=== PATIENT | female | born 1955 | race Caucasian/White ===

== ENCOUNTER 2025-03-27 12:27 | Emergency (ER) | payer MEDICARE, SELFPAY ==
[2025-03-27 13:06] VITALS: BP 116/77; PULSE 87; RESP 18; TEMP 36.9; O2SAT 95; BMI 26.4
[2025-03-27] MEDS: ONDANSETRON ODT 4 MG TABRAP PO (13:26)
[2025-03-27] MEDS: MORPHINE SULF INJ 10 MG/ML VIAL 5 MG IM (13:26)
[2025-03-27] MEDS: DEXAMETHASONE SOD PHOS INJ 10 MG/ML VIAL PO (13:27)
--- NOTE | 2025-03-27 13:57 | PD.EDNECK ---
ED Neck Injury Pain RME/HPI General Chief Complaint: Neck Pain/Injury Stated Complaint: Neck pain radiating down to shoulders. Time Seen by Provider: 03/27/25 13:12 Arrival date/time: 03/27/25 12:27 69-year-old female presents to the emergency department today for complaints of neck pain patient reports pain worse with movement. Patient reports her pain is chronic and has been dealing with this for some time patient reports she has had imaging and lab work in the past. Limitations: no limitations Related Data Home Medications ?Medication ?Instructions ?Recorded ?Confirmed metoprolol tartrate 25 mg tablet 25 mg PO DAILY High Blood Pressure 10/20/19 11/22/23 montelukast 10 mg tablet 10 mg PO HS Allergies 10/20/19 11/22/23 quetiapine 300 mg tablet,extended 400 mg PO HS Sleep Disorder 10/20/19 11/22/23 release 24 hr albuterol sulfate 90 mcg/actuation 2 puff inhalation Q6H PRN COPD 11/05/19 11/23/23 aerosol inhaler (Ventolin HFA) gabapentin 400 mg capsule 600 mg PO TID 03/25/20 11/22/23 tiotropium bromide 18 mcg capsule 1 cap inhalation QDAY 03/25/20 11/22/23 with inhalation device (Spiriva with HandiHaler) hydroxyzine HCl 25 mg tablet 25 mg PO HS Sleep Disorder 10/31/21 11/22/23 ropinirole 4 mg tablet 4 mg PO HS 08/29/22 11/22/23 melatonin 10 mg tablet 10 mg PO HS PRN Sleep 09/01/22 11/22/23 paroxetine HCl 20 mg tablet 20 mg PO DAILY 11/22/23 11/23/23 tiotropium bromide 18 mcg capsule inhalation 11/22/23 with inhalation device (Spiriva with HandiHaler) Previous Rx's ?Medication ?Instructions ?Recorded hydrocodone 5 mg-acetaminophen 325 1 tab PO BID PRN pain #10 tabs 11/14/23 mg tablet famotidine 40 mg tablet 40 mg PO QDAY #30 tabs 11/25/23 hydrocodone 5 mg-acetaminophen 300 1 tab PO BID PRN moderate pain 11/25/23 mg tablet (scale score 5-6) #14 tabs pantoprazole 40 mg tablet,delayed 40 mg PO QDAY #30 tabs 11/25/23 release doxycycline monohydrate 100 mg 100 mg PO BID #10 caps 08/18/24 capsule cyclobenzaprine 10 mg tablet 10 mg PO TID PRN muscle spasm 10 03/27/25 days #30 tab-caps Allergies Allergy/AdvReac Type Severity Reaction Status Date / Time adhesive tape Allergy Severe Hives Verified 03/27/25 12:30 Sulfa (Sulfonamide Allergy Severe RASH Verified 03/27/25 12:30 Antibiotics) Review of Systems Review of Systems Systems Reviewed: All systems reviewed, normal except as documented Constitutional Constitutional: Reports system reviewed and no additional complaints, except as documented, Denies fever(s) and Denies headache(s) Eyes Eyes: Reports system reviewed and no additional complaints, except as documented and Denies blurry vision ENT Ears, Nose, Mouth, and Throat: Reports system reviewed and no additional complaints, except as documented, Denies headache(s), Denies nasal congestion, Denies nasal discharge and Reports neck pain Cardiovascular Cardiovascular: Reports system reviewed and no additional complaints, except as documented, Denies chest pain and Denies dyspnea Respiratory Respiratory: Reports system reviewed and no additional complaints, except as documented, Denies chest congestion, Denies cough and Denies dyspnea Gastrointestinal Gastrointestinal: Reports system reviewed and no additional complaints, except as documented and Denies abdominal pain Musculoskeletal Musculoskeletal: Reports system reviewed and no additional complaints, except as documented, Denies deformity and Reports neck pain Integumentary/Breasts Skin/Breast: Reports system reviewed and no additional complaints, except as documented and Denies rash Neurologic Neurologic: Reports system reviewed and no additional complaints, except as documented, Reports as per HPI and Denies headache(s) Past Medical History Past Medical History NEUROLOGIC: Positive Neurological Disorders and Migraine; Negative Cerebrovascular Accident, Transient Ischemic Attacks (TIA), Dementia, Alzheimer's Disease, Parkinson's Disease, Brain Tumor, Meningitis, Seizures, Epilepsy, Cerebral Palsy, Amyotrophic Lateral Sclerosis (ALS/Deanna Gehrig's), Guillain-[place] Syndrome, Spina Bifida, Paralysis, Peripheral Neuropathy, David's Palsy, Subdural Hematoma, Head Trauma, Spinal Cord Injury or Traumatic Brain Injury CARDIAC: Positive Cardiac Arrhythmia and Hypertension; Negative Cardiac Disorders, Myocardial Infarction, Atrial Fibrillation, Angina, Heart Murmur, Coronary Artery Disease, Atherosclerotic Heart Disease, Peripheral Vascular Disease, Hypercholesterolemia, Aneurysm, Congestive Heart Failure, Congenital Heart Disease, Valvular Heart Disease, Rheumatic Fever, Cardiomyopathy, Edema, Pericarditis, Cellulitis, Deep Vein Thrombosis, Hypotension or Varicose Veins RESPIRATORY: Positive Asthma and Emphysema; Negative Chronic Obstructive Pulmonary Disease (COPD), Bronchitis, Pneumonia, Pulmonary Fibrosis, Cystic Fibrosis, Tuberculosis, Pulmonary Embolism, Pulmonary Edema or Sleep Apnea GASTROINTESTINAL: Positive Gastrointestinal Disorders, Hepatitis, Gall Bladder Disease, Ulcer, Hiatal Hernia and Obesity; Negative Cirrhosis, Pancreatitis, Celiac Disease, Gastrointestinal Bleed, Esophageal Varices, Hassan's Esophagus, Colitis, Ulcerative Colitis, Diverticulitis, Diverticulosis, Colorectal Cancer, Irritable Bowel, Crohn's Disease, Obstructive Bowel, Hemorrhoids or Gastroesophageal Reflux Disease GENITOURINARY: Negative Genitourinary Disorders, Renal Disease, Kidney Stones, Polycystic Kidney Disease, Neurogenic Bladder, Inguinal Hernia, Dialysis or Prostate Cancer REPRODUCTIVE: Positive Previous Pregnancies; Negative Breast Cancer, Endometriosis, Genital Herpes, Gonorrhea, Pelvic Inflammatory Disease, Syphilis or Uterine Prolapse MUSCULOSKELETAL: Positive Musculoskeletal Disorders, Arthritis, Carpal Tunnel Syndrome, Fibromyalgia and Fractures; Negative Muscular Dystrophy, Myasthenia Gravis, Marfan's Syndrome, Bone Cancer, Rheumatoid Arthritis, Osteoporosis, Degenerative Joint Disease, Osteomyelitis or Poliovirus ENT: Positive Cataracts; Negative Glaucoma, Blind, Retinal Detachment, Macular Degeneration, Ear Infection, Deafness, Head Trauma or Eye Prosthesis ENDOCRINE: Negative Endocrine Disorders, Diabetes Mellitus Type 1, Diabetes Mellitus Type 2, Hypoglycemia, Hyperthyroidism, Hypothyroidism, Parathyroid Disease, Pituitary Disease, Systemic Lupus Erythematosus, Syndrome of Inappropriate Antidiuretic Hormone (SIADH) or Graves' Disease HEMATOLOGIC: Positive Anemia; Negative Blood Disorders, Leukemia, Hemophilia, Thalassemia, Sickle Cell Disease or Clotting Problems PSYCHO/SOCIAL: Positive Schizophrenia, Depression and Anxiety; Negative Psychiatric Problems, Recreational Drug Use, Bipolar Disorder, Behavior Problems, Self-Mutilation, Attention Deficit Disorder, Attention Deficit Hyperactivity Disorder, Depression, Post Traumatic Stress Disorder or Eating Disorder OTHER HISTORY: Positive Hospitalization, Shingles, Falls, Blood Transfusions and Chicken Pox; Negative Autoimmune Disease, Down Syndrome, Autism, Developmental Delay, Blood Transfusion Reaction, Anesthesia Reactions, Organ Transplant, Chemotherapy, Radiation Therapy, Hyperbaric Therapy, MRSA, VRSA, Vancomycin-Resistant Enterococci, Human Immunodeficiency Virus (HIV), Measles, Mumps, Rubella (Macedonian Measles), Pertussis, Clostridium Difficile, Cancer, Breast Cancer, Cervical Cancer, Colorectal Cancer, Lung Cancer, Ovarian Cancer or Prostate Cancer Family History FAMILY HISTORY: Positive Family Respiratory Disorders, Family Cardiac Disorders and Family Cancer; Negative Family Psychiatric Problems, Family Gastrointestinal Problems, Family Surgery or Family Anesthesia Reaction Surgical History SURGICAL: Positive Eye Surgery, Nose Surgery, Abdominal Surgery, Hysterectomy and Section; Negative Cardiac Surgery, Open Heart Surgery, Coronary Artery Bypass Graft, Valve Replacement, Vascular Surgery, Coronary Stent, Cardiac Catheterization, Pacemaker, Angiogram, Auto Implanted Cardiovert Defib, Carotid Endarterectomy, Endocrine Surgery, Thyroidectomy, Ear Surgery, Tympanostomy Tube, Oral Surgery, Tonsillectomy, Adenoidectomy, Cochlear Implant, Corneal Transplant, Throat Surgery, Tracheostomy, Gastric Bypass Surgery, Gastrostomy, Bowel Surgery, Nephrectomy, Joint Replacement, Amputation, Open Reduction Internal Fixation, Arthroscopy, Neurologic Surgery, Brain Shunt, Mastectomy, Lumpectomy, Tubal Ligation or Organ Transplant Social History SMOKING STATUS: Heavy (> 1 pack/day) SECOND HAND EXPOSURE: No SUBSTANCE USE: does not use OCCUPATION: Retired ED Exam General Limitations: Present no limitations General appearance: Present alert and in no apparent distress Head Head exam: Present atraumatic and normocephalic Eye Eye exam: Present normal appearance, PERRL and EOMI; Absent conjunctival injection ENT ENT exam: Present normal exam, normal oropharynx and mucous membranes moist Neck Neck exam: Present normal inspection, full ROM and trachea midline; Absent tenderness Chest Chest inspection: Present normal inspection and symmetric chest wall rise; Absent tenderness Respiratory Respiratory exam: Present normal lung sounds bilaterally Cardiovascular Cardiovascular exam: Present regular rate, normal rhythm and normal heart sounds Abdominal Exam Abdominal exam: Present soft and normal bowel sounds Extremities Exam Extremities exam: Present normal inspection and full ROM Back Exam Back exam: Present normal inspection and full ROM Neurological Exam Neurological exam: Present alert, oriented X3 and CN II-XII intact Psychiatric Psychiatric exam: Present normal affect and normal mood Skin Skin exam: Present warm, dry, intact and normal color Course Quality Measures none Orders Category Date Time Status Dexamethasone Inj [Decadron Inj] Med 03/27/25 13:10 Discontinued 10 mg PO X1 ONE Morphine Inj Med 03/27/25 13:10 Discontinued 5 mg IM X1 ONE Ondansetron Odt [Zofran Odt] Med 03/27/25 13:10 Discontinued 4 mg PO X1 ONE Vital Signs Vital signs: Vital Signs Temperature 98.4 F 03/27/25 13:06 Pulse Rate 87 03/27/25 13:06 Respiratory Rate 18 03/27/25 13:06 Blood Pressure 116/77 03/27/25 13:06 Pulse Oximetry (%) 95 03/27/25 13:06 Oxygen Delivery Method Room Air 03/27/25 13:06 o2 sat 95% r/a wnl Neck Pain MDM Narrative MDM Narrative:: 69-year-old female presents to the emergency department today for complaints of neck pain patient reports pain worse with movement. Patient reports her pain is chronic and has been dealing with this for some time patient reports she has had imaging and lab work in the past. I have reviewed the patient's previous MRIs the patient given a copy of her MRI instructed to follow-up with her PCP for further specialist follow-up Patient given pain medication here Patient with no numbness tingling Patient discharged home in no distress to follow-up with primary care doctor in the next 24 to 48 hours and for any worsening symptoms to return to the ER immediately Patient data External records reviewed:: [facility] previous records Clinical information provided by:: patient Social determinants that could affect healthcare access:: none Patient has the following chronic illnesses:: none How is presenting disease/condition affected by chronic disease/condition?: no chronic disease Evaluation data The following diagnostics were reviewed and interpreted by me:: radiology exam(s) Lab and/or radiology exams considered but not ordered:: reviewed by me Interpretation Summary: reviewed by me Medications / Prescriptions Medications or Prescriptions considered but not ordered:: given Medication administrations:: Medication Administration History Discontinued Medications Dexamethasone Sodium Phosphate (Dexamethasone Sod Phos Inj 10 Mg/Ml Vial) 10 mg PO X1 ONE Stop: 03/27/25 13:11 Last Admin: 03/27/25 13:27 Dose: 10 mg Documented By: LT Comments: PO ADMINISTRATION Morphine Sulfate (Morphine Sulf Inj 10 Mg/Ml Vial) 5 mg IM X1 ONE Stop: 03/27/25 13:11 Last Admin: 03/27/25 13:26 Dose: 5 mg Documented By: LT Comments: 5 MG IM PER ORDER Ondansetron HCl (Ondansetron Odt 4 Mg Tabrap) 4 mg PO X1 ONE; Protocol Stop: 03/27/25 13:11 Last Admin: 03/27/25 13:26 Dose: 4 mg Documented By: LT given Consultations Consultation(s) initiated? (list below): No Diagnosis Neck Differential Diagnosis: disc disorder of cervical region, strain of neck muscle and other (Cervical stenosis) Most likely diagnosis given after review of the tests above:: Cervical stenosis Admission Indicated Admission indicated?: not indicated Admission Request Was there a request for admission?: No Disposition Plan Disposition Plan: Discharge Discharge Attestation Discharge Attestation: The patient and all family members were given an opportunity to ask questions and understood the discharge instructions. Discharge instructions specifically effects, indications for sooner follow up or return to the emergency department, and the expected course of current diagnosis. Patient condition: Stable Discharge Plan Plan Patient Disposition: HOME (Self Care) Discharge Disposition comment: Stable Prescriptions/Referrals Prescriptions/Med Rec: New cyclobenzaprine 10 mg tablet 10 mg PO TID PRN (Reason: muscle spasm) 10 Days Qty: 30 0RF No Action metoprolol tartrate 25 mg Tablet 25 mg PO DAILY montelukast 10 mg Tablet 10 mg PO HS quetiapine 300 mg Tablet Extended Release 24 Hr 400 mg PO HS hydroxyzine HCl 25 mg Tablet 25 mg PO HS albuterol sulfate [Ventolin HFA] 90 mcg/actuation Hfa Aerosol Inhaler 2 puff inhalation Q6H PRN (Reason: COPD) Rx Instructions: RX ACTIVE ON 10/22/2019 FROM [facility]. gabapentin 400 mg Capsule 600 mg PO TID tiotropium bromide [Spiriva with HandiHaler] 18 mcg Capsule, W/Inhalation Device 1 cap INHALATION QDAY tiotropium bromide [Spiriva with HandiHaler] 18 mcg capsule, w/inhalation device INHALATION Patient Comments: INHALE THE CONTENTS OF ONE (1) CAPSULE BY MOUTH VIA HANDIHALER ONCE DAILY DIRECTED *DO NOT SWALLOW CAPSULE* paroxetine HCl 20 mg tablet 20 mg PO DAILY Patient Comments: TAKE 1 TABLET BY MOUTH EVERY DAY IN THE MORNING pantoprazole 40 mg tablet,delayed release (DR/EC) 40 mg PO QDAY Qty: 30 0RF hydrocodone-acetaminophen 5-300 mg tablet 1 tab PO BID MDD 2 PRN (Reason: moderate pain (scale score 5-6)) Qty: 14 0RF famotidine 40 mg tablet 40 mg PO QDAY Qty: 30 0RF doxycycline monohydrate 100 mg capsule 100 mg PO BID Qty: 10 0RF ropinirole 4 mg Tablet 4 mg PO HS melatonin 10 mg Tablet 10 mg PO HS PRN (Reason: Sleep) hydrocodone-acetaminophen 5-325 mg tablet 1 tab PO BID MDD 10 PRN (Reason: pain) Qty: 10 0RF Problem List Clinical Impression: Neck pain Patient/Caregiver Discharge Instructions Education Materials: ED Back Care Tips Additional Instructions: Please follow up with your primary care doctor in the next 24-48hrs for any worsening symptoms return here immediately Print Language: Latvian Stand Alone Forms: Tatiana Award Info., Patient Portal Info Letter PA/WIRELESS CELLULAR TECHNICIAN Supervising Physician PA/WIRELESS CELLULAR TECHNICIAN Supervising Physician: Dr. jorge
== END 2025-03-27 14:13 | disposition home or self-care (01) ==
LOC: SERX 13:22
PROVIDERS: Emergency Provider Emergency Medicine; PCP Internal Medicine
DX: M54.2 Cervicalgia (principal)
CPT/HCPCS: 96372; 99283; J1100; J2270; Q0162

== ENCOUNTER → 2025-04-25 | Outpatient (CLI) | payer MEDICARE, SELFPAY ==
--- NOTE | 2025-04-25 13:45 | XR_ITS ---
Examination: Arterial duplex lower extremity study. Date and time of exam: April 25, 2025 1346 hours INDICATIONS: Bilateral leg pain several years Findings: Duplex sonographic imaging of the lower extremity arteries using B-mode/Babin scale imaging and Doppler spectral analysis and color flow. Ankle brachial indices have been recorded. Right common femoral artery demonstrates triphasic flow. Right superficial femoral artery demonstrates triphasic flow. Right popliteal artery demonstrates triphasic flow. Right posterior tibial artery demonstrated triphasic flow. Right ankle/brachial index is 1.2. Left common femoral artery demonstrates triphasic flow. Left superficial femoral artery demonstrates triphasic flow. Left popliteal artery demonstrates triphasic flow. Left posterior tibial artery demonstrated triphasic flow. Left ankle/brachial index is 1.2. Impression: No significant peripheral obstructive arterial disease
== END | disposition home or self-care (01) ==
LOC: CDIM 12:41
PROVIDERS: PCP Internal Medicine; Referring Provider Internal Medicine; Visit Provider Internal Medicine
DX: I73.9 Peripheral vascular disease, unspecified (principal)
CPT/HCPCS: 93925

== ENCOUNTER 2025-05-06 23:30 | Emergency (ER) | payer MEDICARE, MEDICAID, SELFPAY ==
[2025-05-06 23:32] VITALS: BMI 27.6
[2025-05-07 00:52] VITALS: BP 101/65; PULSE 81; RESP 17; TEMP 36.8; O2SAT 96
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
[2025-05-07] MEDS: DEXAMETHASONE SOD PHOS INJ 10 MG/ML VIAL PO (02:30)
[2025-05-07] MEDS: MORPHINE SULF INJ 10 MG/ML VIAL 5 MG IM (02:30)
[2025-05-07] MEDS: ONDANSETRON ODT 4 MG TABRAP PO (02:31)
[2025-05-07 03:08] VITALS: BP 110/62; PULSE 87; RESP 18; TEMP 36.8; O2SAT 96
== END 2025-05-07 03:00 | disposition home or self-care (01) ==
PROVIDERS: Emergency Provider Emergency Medicine; PCP Internal Medicine
DX: G89.29 Other chronic pain (principal); M50.90 Cervical disc disorder, unspecified, unspecified cervical region
CPT/HCPCS: 96372; 99283; J1100; J2270; Q0162

== ENCOUNTER → 2025-05-23 | Outpatient (CLI) | payer MEDICARE, MEDICAID, SELFPAY ==
--- NOTE | 2025-05-23 08:00 | XR_ITS ---
Examination: MRI cervical spine without intravenous contrast Date and time of exam: May 23, 2025 0826 hours Comparison January 27, 2024 INDICATIONS: Neck pain radiating to the right shoulder and right arm 30 years, worse the last 3 months Technique: Multiple axial and sagittal sections of the cervical spine to been obtained. T2 weighted sagittal sections, TR 3, 270, TE 117 T1-weighted sagittal sections, TR 500, TE 11 T1-weighted axial sections, TR 607, TE 12, axial sections TR 18, TE 27 and T2 weighted transverse sections, TR 3920, TE 122. Findings: Minimal anterolisthesis C4 on C5 Advanced degenerative disc disease C5-C6, C6-C7 Moderate cervical spondylosis Diffuse cervical disc desiccation. Mild increased signal in the cervical cord at the C4 and C5 level C2-C3 moderate right neural foraminal stenosis C3-C4 moderate left neural foraminal stenosis C4-C5 moderate to severe overall spinal stenosis, 3 mm central subarticular osteophyte disc complex, indenting the ventral margin cervical cord with advanced bilateral neural foraminal stenosis C5-C6 3 mm central left paracentral subarticular osteophyte disc complex, advanced left neural foraminal stenosis C6-C7 2 mm central subarticular osteophyte disc complex, moderate bilateral neural foraminal stenosis C7-T1 no disc protrusion IMPRESSION: Advanced degenerative disc disease C5-C6, C6-C7 C2-C3 moderate right neural foraminal stenosis C3-C4 moderate left neural foraminal stenosis C4-C5 moderate to severe overall spinal stenosis, 3 mm central subarticular osteophyte disc complex with advanced bilateral neural foraminal stenosis C5-C6 3 mm central left paracentral subarticular osteophyte disc complex, advanced left neural foraminal stenosis C6-C7 2 mm central subarticular osteophyte disc complex, moderate bilateral neural foraminal stenosis
== END | disposition home or self-care (01) ==
LOC: SMRI 07:41
PROVIDERS: PCP Internal Medicine; Referring Provider Internal Medicine; Visit Provider Internal Medicine
DX: M50.322 Other cervical disc degeneration at C5-C6 level (principal); M48.02 Spinal stenosis, cervical region; M50.323 Other cervical disc degeneration at C6-C7 level; M25.78 Osteophyte, vertebrae
CPT/HCPCS: 72141

== ENCOUNTER 2025-07-26 16:02 | Emergency (ER) | payer MEDICAID, MEDICARE, SELFPAY ==
[2025-07-26 16:04] VITALS: BMI 27.4
[2025-07-26 16:11] VITALS: BP 91/56; BP 92/41; PULSE 82; RESP 20; TEMP 37; O2SAT 97
--- NOTE | 2025-07-26 16:23 | XR_ITS ---
Examination: AP lateral chest 2 views Technique: AP lateral chest 2 views Date and time: July 26, 2025, 1704 hrs. Indications: Fatigue weakness shortness of breath 3 days Findings: No significant cardiac enlargement Moderate elevation right hemidiaphragm. No pneumonia or pulmonary edema There is moderate osteopenia. Impression: No pneumonia or pulmonary edema
--- NOTE | 2025-07-26 16:23 | EKG_ITS ---
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
--- NOTE | 2025-07-26 16:23 | PD.EDRME ---
Rapid Medical Screening Exam RME Arrival date/time: 07/26/25 16:02 69-year-old female with no known medical history presents to the emergency room with a chief complaint of weakness and fatigue x 3 days I have greeted and performed a focused initial assessment of this patient. A comprehensive ED assessment and evaluation of the patient, analysis of all test results, and completion of the medical decision making process will be conducted by additional ED providers. Chief Complaint: Headache Time Seen by Provider: 07/26/25 16:12 Vital signs: Vital Signs Temperature 98.6 F 07/26/25 16:11 Pulse Rate 82 07/26/25 16:11 Respiratory Rate 20 07/26/25 16:11 Blood Pressure 91/56 L 07/26/25 16:11 Pulse Oximetry (%) 97 07/26/25 16:11 Oxygen Delivery Method Room Air 07/26/25 16:11 Vital signs reviewed by provider: Yes
[2025-07-26 16:53] LABS: Collection Type, Urine Clean Catch
[2025-07-26 17:09] LABS: Basophils # (Auto) 0.1 Thou/mm3 (0.0-0.2); Basophils % (Auto) 1 % (0-2.5); Eosinophils # (Auto) 0.6 Thou/mm3 (0.0-0.5); Eosinophils % (Auto) 4 % (0-10); Hematocrit 27.8 % (36.0-46.0); Immature Granulocytes Auto 0.04 Thou/mm3 (0.00-0.00); Lymphocytes # (Auto) 6.4 Thou/mm3 (1.0-4.8); Lymphocytes % (Auto) 43 % (10-50); Mean Corpuscular HGB Conc 30.2 g/dl (31.0-37.0); Mean Corpuscular Hemoglobin 22.3 pg (25.0-35.0); Mean Corpuscular Volume 74 fL (80-100); Monocytes # (Auto) 1.7 Thou/mm3 (0.0-0.8); Monocytes % (Auto) 11 % (0-12); Neutrophils # (Auto) 6.2 Thou/mm3 (1.8-7.7); Neutrophils % (Auto) 41 % (37-80); Nucleated Red Blood Cell # 0.02 Thou/mm3 (0.00-0.00); Nucleated Red Blood Cell % 0 /100 WBC (0); Platelet Count 465 Thou/mm3 (140-440); RDW Standard Deviation 60.9 fL (36.4-46.3); Red Blood Count 3.77 Miln/mm3 (4.00-5.20); White Blood Count 15.0 Thou/mm3 (3.6-11.0)
[2025-07-26 17:13] LABS: B-Type Natriuretic Peptide 173 pg/mL (0-100)
[2025-07-26 17:15] LABS: INR 0.9 (0.9-1.3); Partial Thromboplastin Time 22.8 Seconds (22.0-36.0); Prothrombin Time 10.3 Seconds (9.0-12.2)
[2025-07-26 17:16] LABS: Alanine Aminotransferase 11 U/L (10-49); Albumin, Serum 3.8 gm/dL (3.4-4.8); Albumin/Globulin Ratio 1.7 (1.2-2.2); Alkaline Phosphatase 147 U/L (46-116); Anion Gap 8 (7-16); Aspartate Amino Transferase 19 U/L (0-34); BUN/Creatinine Ratio 13 Ratio (12-20); Bilirubin,Total 0.3 mg/dL (0.3-1.2); Blood Urea Nitrogen 13 mg/dL (9-23); Calcium 8.5 mg/dL (8.3-10.6); Calcium (Corrected) 8.7 mg/dL (8.5-10.1); Carbon Dioxide 28.5 mMol/L (20.0-31.0); Chloride 107 mMol/L (98-107); Creatinine (Component) 1.0 mg/dL (0.6-1.3); Estimated Creatinine Clearance 43.6 mL/min (>60); Globulin 2.3 gm/dL (2.3-3.5); Glucose 105 mg/dL (74-106); Magnesium 1.9 mg/dL (1.6-2.6); Osmolality,Calculated 285 (275-295); Potassium 4.0 mMol/L (3.4-5.1); Sodium 143 mMol/L (136-145); Total Protein 6.1 gm/dL (5.7-8.2); Troponin I < 0.002 ng/mL (0.0-0.045); eGFR > 60 See Note
[2025-07-26 17:25] LABS: Hemoglobin 8.4 g/dL (12.0-16.0)
[2025-07-26 19:29] LABS: Bilirubin,Urine Negative (Negative); Blood,Urine Negative (Negative); Clarity,Urine Clear (Clear/Hazy); Color,Urine Yellow (Lt Yel-Yel); Glucose, Urine Negative (Negative); Ketones,Urine Negative (Negative); Leukocyte Esterase,Urine Positive (Negative); Nitrite,Urine Negative (Negative); PH,Urine 6.0 (5.0-7.0); Protein,Urine 1+ (Neg - Trace); RBC,Urine 27 /hpf (0-3); Specific Gravity,Urine 1.033 (1.001-1.035); Squamous Epithelial Cell,Urine 2 /hpf (0-5); Urobilinogen,Urine 2.0 mg/dL (0.0-1.0); WBC,Urine 33 /hpf (0-5)
--- NOTE | 2025-07-26 19:32 | PD.EDNECK ---
ED Neck Injury Pain RME/HPI General Chief Complaint: Headache Stated Complaint: HEAD/NECK IS SORE, BP KEEPS DROPPING Time Seen by Provider: 07/26/25 16:12 Arrival date/time: 07/26/25 16:02 RME / HPI RME / HPI Narrative: 69-year-old female with no known medical history presents to the emergency room with a chief complaint of weakness and fatigue x 3 days. Patient also complaining of posterior neck pain. Also complained of blood pressure very unstable sometimes yesterday it was high today it was low. Denies any cough denies any chest pain denies any abdominal pain denies any fever vomiting diarrhea. Denies any other complaints. Patient is taking [place] 10 every 6 hours. Her last [place] was 9:00 this morning. She had an MRI of the cervical spine done 2 months ago and showed multiple degenerative disc disease. Patient is on motorized scooter. Related Data Home Medications ?Medication ?Instructions ?Recorded ?Confirmed metoprolol tartrate 25 mg tablet 25 mg PO DAILY High Blood Pressure 10/20/19 11/22/23 montelukast 10 mg tablet 10 mg PO HS Allergies 10/20/19 11/22/23 quetiapine 300 mg tablet,extended 400 mg PO HS Sleep Disorder 10/20/19 11/22/23 release 24 hr albuterol sulfate 90 mcg/actuation 2 puff inhalation Q6H PRN COPD 11/05/19 11/23/23 aerosol inhaler (Ventolin HFA) gabapentin 400 mg capsule 600 mg PO TID 03/25/20 11/22/23 tiotropium bromide 18 mcg capsule 1 cap inhalation QDAY 03/25/20 11/22/23 with inhalation device (Spiriva with HandiHaler) hydroxyzine HCl 25 mg tablet 25 mg PO HS Sleep Disorder 10/31/21 11/22/23 ropinirole 4 mg tablet 4 mg PO HS 08/29/22 11/22/23 melatonin 10 mg tablet 10 mg PO HS PRN Sleep 09/01/22 11/22/23 paroxetine HCl 20 mg tablet 20 mg PO DAILY 11/22/23 11/23/23 tiotropium bromide 18 mcg capsule inhalation 11/22/23 with inhalation device (Spiriva with HandiHaler) Previous Rx's ?Medication ?Instructions ?Recorded hydrocodone 5 mg-acetaminophen 325 1 tab PO BID PRN pain #10 tabs 11/14/23 mg tablet famotidine 40 mg tablet 40 mg PO QDAY #30 tabs 11/25/23 hydrocodone 5 mg-acetaminophen 300 1 tab PO BID PRN moderate pain 11/25/23 mg tablet (scale score 5-6) #14 tabs pantoprazole 40 mg tablet,delayed 40 mg PO QDAY #30 tabs 11/25/23 release doxycycline monohydrate 100 mg 100 mg PO BID #10 caps 08/18/24 capsule cefuroxime axetil 500 mg tablet 500 mg PO BID #14 tabs 07/26/25 ferrous sulfate 324 mg (65 mg 324 mg PO BID #60 tabs 07/26/25 iron) tablet,delayed release Allergies Allergy/AdvReac Type Severity Reaction Status Date / Time adhesive tape Allergy Severe Hives Verified 07/26/25 16:04 Sulfa (Sulfonamide Allergy Severe RASH Verified 07/26/25 16:04 Antibiotics) Review of Systems Review of Systems Narrative Review of Systems: Review of system reviewed and within normal limits except mentioned in HPI ED Exam Narrative Physical exam: VITAL SIGNS: Reviewed. GENERAL APPEARANCE: Alert and interactive, follows commands, no acute distress, HEAD AND FACE: Non-traumatic. ENT: PERRL, pink conjunctivitis, eyelid no trauma, Mucous membrane moist. NECK: Supple, posterior neck tenderness, no nuchal rigidity. CHEST: No tenderness, no crepitus, no paradoxical movement, no retractions. LUNGS: Clear, well ventilated, symmetric, no rales, no wheezing, no ronchi, no stridor, good breath sounds bilaterally. HEART: Regular rate, regular rhythm, no murmur, no gallops. ABDOMEN: Soft, positive bowel sounds, nondistended, no guarding, nontender, no rebound, no masses, RECTAL: Deferred. GENITAL: Deferred. NEUROLOGICAL: Gross motor function intact sensory function intact, Appropriate for age. MUSCULOSKELETAL: low back nontender, full range of motion. EXTREMITIES: Nontender, full range of motion. SKIN: Color pink, dry, no rash, no lacerations, no abrasions, no contusions. LYMPHATICS: Deferred. Course Quality Measures none Orders Category Date Time Status EKG (ED ONLY) *Do not use* NOW Care 07/26/25 16:23 Completed EKG (ED Only) Stat Exams 07/26/25 16:23 Draft XR chest 2V Stat Exams 07/26/25 16:23 Completed B-Type Natriuretic Peptide Stat Lab 07/26/25 16:42 Completed CBC Stat Lab 07/26/25 16:42 Completed Comprehensive Metabolic Panel Stat Lab 07/26/25 16:42 Completed Drug Screen,Urine Stat Lab 07/26/25 19:00 Completed Magnesium Stat Lab 07/26/25 16:42 Completed Partial Thromboplastin Time Stat Lab 07/26/25 16:42 [address] Review Blood Smear Stat Lab 07/26/25 16:42 Completed Prothrombin Time with INR Stat Lab 07/26/25 16:42 Completed Troponin I Stat Lab 07/26/25 16:42 Completed Urinalysis, C/S if Indicated Stat Lab 07/26/25 19:00 Completed Urine Culture Stat Lab 07/26/25 19:00 Received HYDROcodone/APAP 10/325 [[place] 10/325] Med 07/26/25 19:32 Discontinued 1 tab PO X1 ONE Ketorolac Inj [Toradol Inj] Med 07/26/25 18:33 Discontinued 30 mg IM X1 ONE Ketorolac Inj [Toradol Inj] Med 07/26/25 19:58 Discontinued 30 mg IVP X1 ONE Sodium Chloride 0.9% 1000 ml [Ns] 1,000 ml Med 07/26/25 19:03 Discontinued IV 999 mls/hr cefTRIAXone/D5w 1gm IV premix [Rocephin/D5w 1gm IV Med 07/26/25 20:34 Discontinued premix] 1 gm in 50 ml IV X1 Vital Signs Vital signs: Vital Signs Temperature 98.6 F 07/26/25 16:11 Pulse Rate 82 07/26/25 16:11 Respiratory Rate 20 07/26/25 16:11 Blood Pressure 91/56 L 07/26/25 16:11 Pulse Oximetry (%) 97 07/26/25 16:11 Oxygen Delivery Method Room Air 07/26/25 16:11 Neck Pain MDM Narrative MDM Narrative:: 69-year-old female with no known medical history presents to the emergency room with a chief complaint of weakness and fatigue x 3 days. Patient also complaining of posterior neck pain. Also complained of blood pressure very unstable sometimes yesterday it was high today it was low. Denies any cough denies any chest pain denies any abdominal pain denies any fever vomiting diarrhea. Denies any other complaints. Patient is taking [place] 10 every 6 hours. Her last [place] was 9:00 this morning. She had an MRI of the cervical spine done 2 months ago and showed multiple degenerative disc disease. Patient is on motorized scooter. EKG showed sinus rhythm, ventricular rate of 81 bpm, no ST segment elevation depression noted. Patient's workup is significant for UTI. Chest x-ray came back with no pneumonia no abnormality noted. Patient with blood pressure was noted to be 108/60 heart rate of 82 after patient received a liter of fluid. CBC significant 15,000 WBC count creatinine is normal total bili is normal. EKG showed sinus rhythm, ventricular rate of 81 bpm, no ST segment elevation depression noted. Patient was given IV fluids, was given IV ceftriaxone and [place]. She is stable for discharge home. Patient data External records reviewed:: None Clinical information provided by:: patient Social determinants that could affect healthcare access:: none Patient has the following chronic illnesses:: Chronic neck pain, hypertension How is presenting disease/condition affected by chronic disease/condition?: exacerbated by Evaluation data The following diagnostics were reviewed and interpreted by me:: lab results, radiology exam(s) and EKG tracing(s) Lab and/or radiology exams considered but not ordered:: None Interpretation Summary: None Medications / Prescriptions Medications or Prescriptions considered but not ordered:: None Medication administrations:: Medication Administration History Discontinued Medications Hydrocodone Bitart/Acetaminophen (Hydrocodone/Apap 10/325 Tab) 1 tab PO X1 ONE Stop: 07/26/25 19:33 Last Admin: 07/26/25 19:53 Dose: 1 tab Documented By: LAWANDA Sodium Chloride (Ns) 1,000 mls @ 999 mls/hr IV .Q1H1M ONE Stop: 07/26/25 20:03 Last Admin: 07/26/25 19:54 Dose: 999 mls/hr Documented By: LAWANDA Ceftriaxone Sodium/Dextrose (Rocephin/D5w 1gm Iv Premix) 1 gm in 50 mls @ 100 mls/hr IV X1 ONE Stop: 07/26/25 21:03 Last Admin: 07/26/25 21:02 Dose: 100 mls/hr Documented By: LAWANDA Ketorolac Tromethamine (Ketorolac Inj 30 Mg/Ml Vial) 30 mg IM X1 ONE Stop: 07/26/25 18:34 Last Admin: 07/26/25 19:58 Dose: Not Given Documented By: LAWANDA Non-Admin Reason: Discontinued Ketorolac Tromethamine (Ketorolac Inj 30 Mg/Ml Vial) 30 mg IVP X1 ONE Stop: 07/26/25 19:59 Last Admin: 07/26/25 20:01 Dose: 30 mg Documented By: LAWANDA Toradol, ceftriaxone IV IV fluids, [place] Consultations Consultation(s) initiated? (list below): No Diagnosis Neck Differential Diagnosis: other (Chronic neck pain, UTI, pneumonia, dizziness, hypotension) Most likely diagnosis given after review of the tests above:: Chronic neck pain, UTI, anemia Admission Indicated Admission indicated?: not indicated Admission Request Was there a request for admission?: No Disposition Plan Disposition Plan: Discharge Discharge Attestation Discharge Attestation: The patient was given an opportunity to ask questions and understood the discharge instructions. Discharge instructions specifically effects, indications for sooner follow up or return to the emergency department, and the expected course of current diagnosis. Patient condition: Stable Discharge Plan Plan Patient Disposition: HOME (Self Care) Discharge Disposition comment: Stable Prescriptions/Referrals Prescriptions/Med Rec: New cefuroxime axetil 500 mg tablet 500 mg PO BID Qty: 14 0RF ferrous sulfate 324 mg (65 mg iron) tablet,delayed release (DR/EC) 324 mg PO BID Qty: 60 0RF No Action metoprolol tartrate 25 mg Tablet 25 mg PO DAILY montelukast 10 mg Tablet 10 mg PO HS quetiapine 300 mg Tablet Extended Release 24 Hr 400 mg PO HS hydroxyzine HCl 25 mg Tablet 25 mg PO HS albuterol sulfate [Ventolin HFA] 90 mcg/actuation Hfa Aerosol Inhaler 2 puff inhalation Q6H PRN (Reason: COPD) Rx Instructions: RX ACTIVE ON 10/22/2019 FROM [facility]. gabapentin 400 mg Capsule 600 mg PO TID tiotropium bromide [Spiriva with HandiHaler] 18 mcg Capsule, W/Inhalation Device 1 cap INHALATION QDAY tiotropium bromide [Spiriva with HandiHaler] 18 mcg capsule, w/inhalation device INHALATION Patient Comments: INHALE THE CONTENTS OF ONE (1) CAPSULE BY MOUTH VIA HANDIHALER ONCE DAILY DIRECTED *DO NOT SWALLOW CAPSULE* paroxetine HCl 20 mg tablet 20 mg PO DAILY Patient Comments: TAKE 1 TABLET BY MOUTH EVERY DAY IN THE MORNING pantoprazole 40 mg tablet,delayed release (DR/EC) 40 mg PO QDAY Qty: 30 0RF hydrocodone-acetaminophen 5-300 mg tablet 1 tab PO BID MDD 2 PRN (Reason: moderate pain (scale score 5-6)) Qty: 14 0RF famotidine 40 mg tablet 40 mg PO QDAY Qty: 30 0RF doxycycline monohydrate 100 mg capsule 100 mg PO BID Qty: 10 0RF ropinirole 4 mg Tablet 4 mg PO HS melatonin 10 mg Tablet 10 mg PO HS PRN (Reason: Sleep) hydrocodone-acetaminophen 5-325 mg tablet 1 tab PO BID MDD 10 PRN (Reason: pain) Qty: 10 0RF Referrals: No Primary/Family,Physician [Primary Care Provider] - In 1 week Problem List Clinical Impression: UTI (urinary tract infection), Anemia, Chronic neck pain Patient/Caregiver Discharge Instructions Discharge Activity: activity as tolerated Education Materials: Anemia, Understanding Urinary Tract ... Additional Instructions: Thank you for the opportunity for serving you today. You are stable for discharged . You are advised to: Follow-up with your PCP in 1 to 2 days Return to ED for worsening of symptoms Increase oral fluids Take medication as prescribed Print Language: Setswana Stand Alone Forms: Tatiana Award Info., Patient Portal Info Letter PA/EDWARD Supervising Physician CRISTHIAN/EDWARD Supervising Physician: MD Estefanía
[2025-07-26 19:37] LABS: Amphetamine/Methamp Scrn,U Negative (Negative); Barbiturate Screen,Urine Negative (Negative); Benzodiazepines Screen,Urine Negative (Negative); Benzoylecgonine Screen, Ur Negative (Negative); Fentanyl Screen,Urine Negative (Negative); Opiate Screen,Urine Positive (Negative); THC Screen,Urine Negative (Negative)
[2025-07-26 19:49] LABS: Culture Indicated,Urine Yes
[2025-07-26] MEDS: SODIUM CHLORIDE 0.9% 1000 ML 1,000 ML 999 ML IV (19:54)
[2025-07-26 19:56] VITALS: BP 96/58; PULSE 76; RESP 19; TEMP 36.9; O2SAT 96
--- NOTE | 2025-07-26 20:00 | PC.NURSE ---
Pt denies fall or head trauma states arrived a the ER with a gradual onset headache
[2025-07-26] MEDS: KETOROLAC INJ 30 MG/ML VIAL IVP (20:01)
[2025-07-26 20:07] LABS: Path Review Blood Smear Sent to Pathologist
[2025-07-26 20:18] VITALS: BP 95/52; PULSE 76; RESP 18; TEMP 36.6; O2SAT 96
[2025-07-26 21:00] VITALS: BP 108/60; PULSE 82; RESP 19; O2SAT 95
[2025-07-26] MEDS: cefTRIAXone/D5w 1gm IV premix 1 GM/50 ML BAG IV (21:02)
[2025-07-26 22:05] VITALS: PULSE 88; RESP 19; TEMP 37; O2SAT 94
== END 2025-07-26 22:08 | disposition home or self-care (01) ==
PROVIDERS: Nurse Practitioner Family; Emergency Provider Emergency Medicine
DX: D64.9 Anemia, unspecified (principal); N39.0 Urinary tract infection, site not specified; M54.2 Cervicalgia; G89.29 Other chronic pain; R06.02 Shortness of breath; R94.31 Abnormal electrocardiogram [ECG] [EKG]
CPT/HCPCS: 36415; 71046; 80053; 80307; 81001; 83735; 83880; 84484; 85025; 85610; 85730; 87086; 93005; 99283; J0696; J1885; J7030; A9270

== ENCOUNTER 2025-07-28 14:24 | Emergency (ER) | payer MEDICARE, MEDICAID, SELFPAY ==
[2025-07-28] VITALS (8 sets, daily range): BP systolic 113–141; BP diastolic 55–87; PULSE 72–96; RESP 16–20; TEMP 36.9–37.4; O2SAT 96–98; BMI 27.4
--- NOTE | 2025-07-28 14:36 | EKG_ITS ---
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
--- NOTE | 2025-07-28 14:37 | XR_ITS ---
Examination: AP chest single view Technique: Portable sitting AP chest single view Date and time: July 28, 2025, 1447 hrs. Indications: Sepsis alert today Findings: No significant cardiac enlargement. Mild to moderate vascular congestion. No lobar pneumonia. Prominent osteopenia Impression: No pneumonia identified.
--- NOTE | 2025-07-28 14:39 | EDNOTE_ITS ---
ED General RME/HPI General Chief complaint: Weakness Stated complaint: WEAKNESS Time Seen by Provider: 07/28/25 14:34 Arrival date/time: 07/28/25 14:24 CC: Numbness and tingling all over HPI onset 3 days ago. At that time patient was seen in the emergency room diagnosed with UTI and was discharged home patien t never picked up or took medications. EMS report stable vital signs and route, patient is awake alert in mild discomfort but not in any acute distress. Denies fever dysuria no prior history of similar sensations. No focal deficits. Patient continues to smoke cigarettes Related Data Home Medications ?Medication ?Instructions ?Recorded ?Confirmed metoprolol tartrate 25 mg tablet 25 mg PO DAILY High B lood Pressure 10/20/19 11/22/23 montelukast 10 mg tablet 10 mg PO HS Allergies 11/22/23 quetiapine 300 mg tablet,extended 400 mg PO HS Sleep D isorder 10/20/19 11/22/23 release 24 hr albuterol sulfate 90 mcg/actuation 2 puff inhalation Q 6H PRN COPD 11/05/19 11/23/23 aerosol inhaler (Ventolin HFA) gabapentin 400 mg capsule 600 mg PO TID 03/25/2011/22 tiotropium bromide 18 mcg capsule 1 cap inhalation QDA Y 03/25/20 11/22/23 with inhalation device (Spiriva with HandiHaler) hydroxyzine HCl 25 mg tablet 25 mg PO HS Sleep Disorde r 10/31/21 11/22/23 ropinirole 4 mg tablet 4 mg PO HS 08/29/22 11/22/23 melatonin 10 mg tablet 10 mg PO HS PRN Sleep 11/22/23 paroxetine HCl 20 mg tablet 20 mg PO DAILY 11/22/23 tiotropium bromide 18 mcg capsule inhalation 11/22/23 with inhalation device (Spiriva with HandiHaler) Previous Rx's ?Medication ?Instructions ?Recorded hydrocodone 5 mg-acetaminophen 325 1 tab PO BID PRN pa in #10 tabs 11/14/23 mg tablet famotidine 40 mg tablet 40 mg PO QDAY #30 tabs 11/25 hydrocodone 5 mg-acetaminophen 300 1 tab PO BID PRN mo derate pain 11/25/23 mg tablet (scale score 5-6) #14 tabs pantoprazole 40 mg tablet,delayed 40 mg PO QDAY #30 ta bs 11/25/23 release doxycycline monohydrate 100 mg 100 mg PO BID #10 caps 08/18/24 capsule cefuroxime axetil 500 mg tablet 500 mg PO BID #14 tabs 07/26/25 ferrous sulfate 324 mg (65 mg 324 mg PO BID #60 tabs 0 07/26/25 iron) tablet,delayed release Allergies Allergy/AdvReac Type Severity Reaction Status Date / Time adhesive tape Allergy Severe Hives Verified 07/26/25 16:04 Sulfa (Sulfonamide Allergy Severe RASH Verified 07/26/25 16:04 Antibiotics) Review of Systems Review of Systems Narrative Review of Systems: GEN: No fever, no chills, no weight loss EYES: No discharge, no visual changes, no pain HEENT: No ear pain, no congestion, no sore throat PULM: No shortness of breath, no cough, no congestion CV: No chest pain, no dyspnea on exertion, no palpitations GI: No nausea, no vomiting, no diarrhea, no pain, no constipation : No frequency, no urgency, no dysuria MUSC/SKEL: No joint pain, no back pain SKIN: No rash PSYCH: No hallucinations, no depression HEME/LYMPH: No easy bleeding or bruising tendencies NEURO: + weakness, no headache Past Medical History Past Medical History NEUROLOGIC: Positive Neurological Disorders and Migraine; Negative Cerebrovascular Accident, Transient Ischemic Attacks (TIA), Dementia, Alzheimer's Disease, Parkinson's Disease, Brain Tumor, Meningitis, Seizures, Epilepsy, Cerebral Palsy, Amyotrophic Lateral Sclerosis (ALS/Deanna Gehrig's), Guillain-Hiland Syndrome, Spina Bifida, Paralysis, Peripheral Neuropathy, David's Palsy, Subdural Hematoma, Head Trauma, Spinal Cord Injury or Traumatic Brain Injury CARDIAC: Positive Cardiac Arrhythmia and Hypertension; Negative Cardiac Disorders, Myocardial Infarction, Atrial Fibrillation, Angina, Heart Murmur, Coronary Artery Disease, Atherosclerotic Heart Disease, Peripheral Vascular Disease, Hypercholesterolemia, Aneurysm, Congestive Heart Failure, Congenital Heart Disease, Valvular Heart Disease, Rheumatic Fever, Cardiomyopathy, Edema, Pericarditis, Cellulitis, Deep Vein Thrombosis, Hypot ension or Varicose Veins RESPIRATORY: Positive Asthma and Emphysema; Negative Chronic Obstructive Pulmonary Disease (COPD), Bronchitis, Pneumonia, Pulmonary Fibrosis, Cystic Fibrosis, Tuberculosis, Pulmonary Embolism, Pulmonary Edema or Sleep Apnea GASTROINTESTINAL: Positive Gastrointestinal Disorders, Hepatitis, Gall Bladder Disease, Ulcer, Hiatal Hernia and Obesity; Negative Cirrhosis, Pancreatitis, Celiac Disease, Gastrointestinal Bleed, Esophageal Varices, Hassan's Esophagus, Colitis, Ulcerative Colitis, Diverticulitis, Diverticulosis, Colorectal Cancer, Irritable Bowel, Crohn's Disease, Obstructive Bowel, Hemorrhoids or Gastroesophageal Reflux Disease GENITOURINARY: Negative Genitourinary Disorders, Renal Disease, Kidney Stones, Polycystic Kidney Disease, Neurogenic Bladder, Inguinal Hernia, Dialysis or Prostate Cancer REPRODUCTIVE: Positive Previous Pregnancies; Negative Breast Cancer, Endometriosis, Genital Herpes, Gonorrhea, Pelvic Inflammatory Disease, Syphilis or Uterine Prolapse MUSCULOSKELETAL: Positive Musculoskeletal Disorders, Arthritis, Carpal Tunnel Syndrome, Fibromyalgia and Fractures; Negative Muscular Dystrophy, Myasthenia Gravis, Marfan's Syndrome, Bone Cancer, Rheumatoid Arthritis, Osteoporosis, Degenerative Joint Disease, Osteomyelitis or Poliovirus ENT: Positive Cataracts; Negative Glaucoma, Blind, Retinal Detachment, Macular Degeneration, Ear Infe ction, Deafness, Head Trauma or Eye Prosthesis ENDOCRINE: Negative Endocrine Disorders, Diabetes Mellitus Type 1, Diabetes Mellitus Type 2, Hypoglycemia, Hyperthyroidism, Hypothyroidism, Parathyroid D isease, Pituitary Disease, Systemic Lupus Erythematosus, Syndrome of Inappropriate Antidiuretic Hormone (SIADH) or Graves' Disease HEMATOLOGIC: Positive Anemia; Negative Blood Disorders, Leukemia, Hemophilia, Thalassemia, Sickle Cell Disease or Clotting Problems PSYCHO/SOCIAL: Positive Schizophrenia, Depression and Anxiety; Negative Psychiatric Problems, Recreational Drug Use, Bipolar Disorder, Behavior Problems, Self-Mutilation, Attention Deficit Disorder, Attention Deficit Hyperactivity Disorder, Depression, Post Traumatic Stress Disorder or Eating Disorder OTHER HISTORY: Positive Hospitalization, Shingles, Falls, Blood Transfusions and Chicken Pox; Negative Autoimmune Disease, Down Syndrome, Autism, Developmental Delay, Blood Transfusion Reaction, Anesthesia Reactions, Organ Transplant, Chemotherapy, Radiation Therapy, Hyperbaric Therapy, MRSA, VRSA, Vancomycin-Resistant Enterococci, Human Immunodeficiency Virus (HIV), Measles, Mumps, Rubella (Nauruan Measles), Pertussis, Clostridium Difficile, Cancer, Breast Cancer, Cervical Cancer, Colorectal Cancer, Lung Cancer, Ovarian Cancer or Prostate Cancer Family History FAMILY HISTORY: Positive Family Respiratory Disorders, Family Cardiac Disorders and Family Cancer; Negative Family Psychiatric Problems, Family Gastrointestinal Problems, Family Surgery or Family Anesthesia Reaction Surgical History SURGICAL: Positive Eye Surgery, Nose Surgery, Abdominal Surgery, Hysterectomy and Section; Negative Cardiac Surgery, Open Heart Surgery, Coronary Artery Bypass Graft, Valve Replacement, Vascular Surgery, Coronary Stent, Cardiac Catheterization, Pacemaker, Angiogram, Auto Implanted Cardiovert Defib, Carotid Endarterectomy, Endocrine Surgery, Thyroidectomy, Ear Surgery, Tympanostomy Tube, Oral Surgery, Tonsillectomy, Adenoidectomy, Cochlear Implant, Corneal Transplant, Throat Surgery, Tracheostomy, Gastric Bypass Surgery, Gastrostomy, Bowel Surgery, Nephr ectomy, Joint Replacement, Amputation, Open Reduction Internal Fixation, Arthroscopy, Neurologic Surgery, Brain Shunt, Mastectomy, Lumpectomy, Tubal Ligation or Organ Transplant Social History SMOKING STATUS: Current every day smoker SECOND HAND EXPOSURE: No SUBSTANCE USE: does not use OCCUPATION: Retired ED Exam Narrative Physical exam: [General: Deconditioned in mild discomfort but not in any acute distress Head normocephalic HEENT: Eyes pupils are PERRLA EOMs are intact mouth no teeth, pink dry membranes uvula is midline swallow symmetrical all other subsystems of HEENT are within acceptable limits Neck is supple nontender Chest equal chest rise nontender to palpation Respiratory: Clear to auscultation no wheezes crackles or rubs CV: Rate rhythm is regular, tachycardic no murmurs rubs or clicks Abdomen is soft nontender no masses positive bowel sounds all 4 quadrants Back: No CVA tenderness no spinous process tenderness from cervical spine thoracic and lumbar spine Skin: Intact no petechiae rash induration ulceration or crepitus Extremities: Moving all extremity against resistance cap refill less than 2 seconds neurosensory intact Neuro: Awake alert oriented x3 Glascow coma 15 no focal deficits] Course Quality Measures none Orders Category Date Time Status Classification Case Manager STAT Care 07/28/25 14:36 Active Continuous Pulse Oximetry STAT Care 07/28/25 14:36 Completed EKG (ED ONLY) *Do not use* NOW Care 07/28/25 14:36 Completed Insert IV NOW Care 07/28/25 14:36 Active NPO STAT Care 07/28/25 14:36 Active Saline [Insert IV] NOW Care 07/28/25 17:27 Active Strict Intake and Output Routine Care 07/28/25 14:36 Ordered EKG (ED Only) Stat Exams 07/28/25 14:36 Draft XR chest 1V SEPSIS PROTOCOL Stat Exams 07/28/25 14:37 Completed B-Type Natriuretic Peptide Stat Lab 07/28/25 15:00 Completed Blood Culture (Lab) Stat Lab 07/28/25 14:55 Received CBC Stat Lab 07/28/25 15:00 Completed Comprehensive Metabolic Panel Stat Lab 07/28/25 15:00 Completed LDH (Lactate Dehydrogenase) Stat Lab 07/28/25 15:00 Completed Lactate (Lactic Acid) Stat Lab 07/28/25 15:00 Completed Lactic Acid, 3 HR Stat Lab 07/28/25 18:31 Completed Magnesium Stat Lab 07/28/25 15:00 Completed Partial Thromboplastin Time Stat Lab 07/28/25 15:00 Completed Phosphorous Stat Lab 07/28/25 15:00 Completed Procalcitonin Stat Lab 07/28/25 15:00 Completed Prothrombin Time with INR Stat Lab 07/28/25 15:00 Completed Troponin I Stat Lab 07/28/25 15:00 Completed Urinalysis, C/S if Indicated Stat Lab 07/28/25 20:04 Completed Ketorolac Inj [Toradol Inj] Med 07/28/25 17:27 Discontinued 15 mg IVP X1 ONE Meloxicam [Mobic] Med 07/28/25 20:07 Discontinued 7.5 mg PO X1 ONE Sodium Chloride 0.9% 500 ml [Ns] 500 ml Med 07/28/25 17:27 Discontinued IV 999 mls/hr cefTRIAXone/D5w 1gm IV premix [Rocephin/D5w 1gm IV Med 07/28/25 19:35 Discontinued premix] 1 gm in 50 ml IV X1 Oxygen Delivery NOW RT 07/28/25 14:36 Active Vital Signs Vital signs: Vital Signs Temperature 98.5 F 07/28/25 14:26 Pulse Rate 80 07/28/25 14:26 Respiratory Rate 16 07/28/25 14:26 Blood Pressure 141/87 H 07/28/25 14:26 Pulse Oximetry (%) 96 07/28/25 14:26 Oxygen Delivery Method Room Air 07/28/25 14:26 Discharge Plan Plan Patient Disposition: HOME (Self Care) Patient condition on transfer: Stable Prescriptions/Referrals Prescriptions/Med Rec: No Action metoprolol tartrate 25 mg Tablet 25 mg PO DAILY montelukast 10 mg Tablet 10 mg PO HS quetiapine 300 mg Tablet Extended Release 24 Hr 400 mg PO HS hydroxyzine HCl 25 mg Tablet 25 mg PO HS albuterol sulfate [Ventolin HFA] 90 mcg/actuation Hfa Aerosol Inhaler 2 puff inhalation Q6H PRN (Reason: COPD) Rx Instructions: RX ACTIVE ON 10/22/2019 FROM [facility]. gabapentin 400 mg Capsule 600 mg PO TID tiotropium bromide [Spiriva with HandiHaler] 18 mcg Capsule, W/Inhalation Device 1 cap INHALATION QDAY tiotropium bromide [Spiriva with HandiHaler] 18 mcg capsule, w/inhalation device INHALATION Patient Comments: INHALE THE CONTENTS OF ONE (1) CAPSULE BY MOUTH VIA HANDIHALER ONCE DAILY DIRECTED *DO NOT SWALLOW CAPSULE* paroxetine HCl 20 mg tablet 20 mg PO DAILY Patient Comments: TAKE 1 TABLET BY MOUTH EVERY DAY IN THE MORNING pantoprazole 40 mg tablet,delayed release (DR/EC) 40 mg PO QDAY Qty: 30 0RF hydrocodone-acetaminophen 5-300 mg tablet 1 tab PO BID MDD 2 PRN (Reason: moderate pain (scale score 5-6)) Qty: 14 0RF famotidine 40 mg tablet 40 mg PO QDAY Qty: 30 0RF doxycycline monohydrate 100 mg capsule 100 mg PO BID Qty: 10 0RF cefuroxime axetil 500 mg tablet 500 mg PO BID Qty: 14 0RF ferrous sulfate 324 mg (65 mg iron) tablet,delayed release (DR/EC) 324 mg PO BID Qty: 60 0RF ropinirole 4 mg Tablet 4 mg PO HS melatonin 10 mg Tablet 10 mg PO HS PRN (Reason: Sleep) hydrocodone-acetaminophen 5-325 mg tablet 1 tab PO BID MDD 10 PRN (Reason: pain) Qty: 10 0RF Referrals: No Primary/Family,Physician [Primary Care Provider] - In 1 week Problem List Clinical Impression: Paresthesias Patient/Caregiver Discharge Instructions Other Activity Instructions:: All your laboratory results show no acute finding that requires emergent or immediate intervention. You have a mild anemia but that is unchanged over a long period of time. Your urine is unremarkable if you choose to you can continue on the antibiotics prescribed 2 days ago however urine shows no acute urinary tract infection or worsening urinary tract infection. Please follow-up with your primary care doctor. Stop smoking and drink more water. Education Materials: ED Paraesthesias Print Language: Bruneian Stand Alone Forms: Tatiana Award Info., Work/School Release, Patient Portal Info Letter PA/MAINTENANCE MECHANIC 2ND SHIFT Supervising Physician PA/MAINTENANCE MECHANIC 2ND SHIFT Supervising Physician: Elan Quinn ENP [facility] Clinical Information Provided by patient and EMS Medical Records Reviewed [facility] and EMS Meds/Rx Considered, not Ordered None Labs/Rad/Tests considered, not Ordered None Chronic Illness/Social Conditions Add or document further as needed: Smoker Lab Interpretation Lab(s) interpretation(s): CBC shows no leukocytosis, H&H of 10.1 and 31.9 respectively. Note: The patient has been anemic for the past 2 years. Platelets at 627 Coags within acceptable limits CMP shows no significant electrolyte imbalances, glucose of 130 no other electrolyte imbalances renal impairment transaminitis or T. bili elevation Lactic at 2.4 Troponin is undetectable BMP within acceptable limits Procalcitonin of 0.08. Urine is negative for UTI. Imaging Provider imaging interpretation(s): Chest x-ray interpreted by me read by radiology as negative. Medication Administration(s) none Medication Administration History Discontinued Medications Sodium Chloride (Ns) 500 mls @ 999 mls/hr IV .Q31M ONE Stop: 07/28/25 17:57 Last Infusion: 07/28/25 18:57 Dose: Infused Documented By: Admin: 07/28/25 18:15 Dose: 999 mls/hr Documented By: MAE Ceftriaxone Sodium/Dextrose (Rocephin/D5w 1gm Iv Premix) 1 gm in 50 mls @ 100 mls/hr IV X1 ONE Stop: 07/28/25 20:04 Last Infusion: 07/28/25 20:42 Dose: Infused Documented By: Admin: 07/28/25 20:05 Dose: 100 mls/hr Documented By: MARGARITO Ketorolac Tromethamine (Ketorolac Inj 30 Mg/Ml Vial) 15 mg IVP X1 ONE Stop: 07/28/25 17:28 Last Admin: 07/28/25 18:15 Dose: 15 mg Documented By: MAE Meloxicam (Meloxicam 7.5 Mg Tablet) 7.5 mg PO X1 ONE Stop: 07/28/25 20:08 Last Admin: 07/28/25 20:41 Dose: 7.5 mg Documented By: MARGARITO None Diagnosis Differential diagnosis: Body aches weakness Most likely dx, and/or detailed dx discussion: There is no dental performed viable infection that requires emergent or immediate intervention. Patient can be discharged home
[2025-07-28 15:11] LABS: Lactate (Lactic Acid) 2.6 mMol/L (0.4-2.0)
[2025-07-28 15:14] LABS: Basophils # (Auto) 0.1 Thou/mm3 (0.0-0.2); Basophils % (Auto) 1 % (0-2.5); Eosinophils # (Auto) 0.0 Thou/mm3 (0.0-0.5); Eosinophils % (Auto) 0 % (0-10); Hematocrit 31.9 % (36.0-46.0); Hemoglobin 10.1 g/dL (12.0-16.0); Immature Granulocytes Auto 0.04 Thou/mm3 (0.00-0.00); Lymphocytes # (Auto) 1.6 Thou/mm3 (1.0-4.8); Lymphocytes % (Auto) 15 % (10-50); Mean Corpuscular HGB Conc 31.7 g/dl (31.0-37.0); Mean Corpuscular Hemoglobin 22.4 pg (25.0-35.0); Mean Corpuscular Volume 71 fL (80-100); Monocytes # (Auto) 1.0 Thou/mm3 (0.0-0.8); Monocytes % (Auto) 9 % (0-12); Neutrophils # (Auto) 8.0 Thou/mm3 (1.8-7.7); Neutrophils % (Auto) 74 % (37-80); Nucleated Red Blood Cell # 0.06 Thou/mm3 (0.00-0.00); Nucleated Red Blood Cell % 1 /100 WBC (0); Platelet Count 627 Thou/mm3 (140-440); RDW Standard Deviation 54.9 fL (36.4-46.3); Red Blood Count 4.50 Miln/mm3 (4.00-5.20); White Blood Count 10.8 Thou/mm3 (3.6-11.0)
[2025-07-28 15:28] LABS: INR 1.0 (0.9-1.3); Partial Thromboplastin Time 22.6 Seconds (22.0-36.0); Prothrombin Time 11.2 Seconds (9.0-12.2)
[2025-07-28 15:36] LABS: B-Type Natriuretic Peptide 57 pg/mL (0-100)
[2025-07-28 15:43] LABS: Alanine Aminotransferase 11 U/L (10-49); Albumin, Serum 4.3 gm/dL (3.4-4.8); Albumin/Globulin Ratio 1.7 (1.2-2.2); Alkaline Phosphatase 125 U/L (46-116); Anion Gap 11 (7-16); Aspartate Amino Transferase 19 U/L (0-34); BUN/Creatinine Ratio 11 Ratio (12-20); Bilirubin,Total 0.8 mg/dL (0.3-1.2); Blood Urea Nitrogen 8 mg/dL (9-23); Calcium 9.6 mg/dL (8.3-10.6); Calcium (Corrected) 9.6 mg/dL (8.5-10.1); Carbon Dioxide 26.9 mMol/L (20.0-31.0); Chloride 106 mMol/L (98-107); Creatinine (Component) 0.7 mg/dL (0.6-1.3); Estimated Creatinine Clearance 62.3 mL/min (>60); Globulin 2.6 gm/dL (2.3-3.5); Glucose 130 mg/dL (74-106); LDH (Lactate Dehydrogenase) 240 U/L (120-246); Magnesium 2.0 mg/dL (1.6-2.6); Osmolality,Calculated 287 (275-295); Phosphorous 3.4 mg/dL (2.4-5.1); Potassium 3.8 mMol/L (3.4-5.1); Sodium 144 mMol/L (136-145); Total Protein 6.9 gm/dL (5.7-8.2); Troponin I < 0.002 ng/mL (0.0-0.045); eGFR > 60 See Note
[2025-07-28 15:46] LABS: Procalcitonin 0.08 ng/ml (0.0-0.49)
[2025-07-28 18:08] LABS: Reflex Lactate? Y
[2025-07-28] MEDS: KETOROLAC INJ 30 MG/ML VIAL 15 MG IVP (18:15)
[2025-07-28] MEDS: SODIUM CHLORIDE 0.9% 500 ML 500 ML 999 ML IV (18:15)
[2025-07-28 18:34] LABS: Lactic Acid, 3 HR 1.2 mMol/L (0.4-2.0)
[2025-07-28] MEDS: cefTRIAXone/D5w 1gm IV premix 1 GM/50 ML BAG IV (20:05)
[2025-07-28] MEDS: MELOXICAM 7.5 MG TABLET PO (20:41)
[2025-07-28 20:48] LABS: Collection Type, Urine Clean Catch
[2025-07-28 21:13] LABS: Bilirubin,Urine Negative (Negative); Blood,Urine Negative (Negative); Clarity,Urine Clear (Clear/Hazy); Color,Urine Lt-Yellow (Lt Yel-Yel); Culture Indicated,Urine Not Indicated; Glucose, Urine Negative (Negative); Ketones,Urine Negative (Negative); Leukocyte Esterase,Urine Positive (Negative); Nitrite,Urine Negative (Negative); PH,Urine 7.5 (5.0-7.0); Protein,Urine Negative (Neg - Trace); RBC,Urine 4 /hpf (0-3); Specific Gravity,Urine 1.010 (1.001-1.035); Squamous Epithelial Cell,Urine 1 /hpf (0-5); Urobilinogen,Urine Negative mg/dL (0.0-1.0); WBC,Urine 4 /hpf (0-5)
== END 2025-07-28 22:16 | disposition home or self-care (01) ==
PROVIDERS: Registered Nurse General Practice; Emergency Provider Emergency Medicine
DX: R20.2 Paresthesia of skin (principal); R20.0 Anesthesia of skin; R53.1 Weakness; F17.210 Nicotine dependence, cigarettes, uncomplicated
CPT/HCPCS: 36415; 71045; 80053; 81001; 83605; 83615; 83735; 83880; 84100; 84145; 84484; 85025; 85610; 85730; 87040; 93005; 96361; 96365; 96375; 99284; J0696; J1885; J7999; A9270